=== PATIENT | female | born 2000 | race Caucasian/White ===

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

== ENCOUNTER 2023-10-11 09:54 | Outpatient (AMB) | payer BC, SELFPAY ==
--- NOTE | 2023-10-11 09:52 | MHC.OFFWIV ---
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 Intake Note: pt is here today for feeling sick hot and cold flashes started 1 weeks ago Patient Tobacco Use Status: Never used Tobacco Allergies No Known Allergies Allergy (Verified 10/11/23 09:59) Do you need a note to return to daycare/school/sports/work: Yes HPI HPI Comments History of Present Illness Details Patient is a 22yo F who presents to office with sick symptoms x 1 week She said subjective fever/chills + body aches and fatigue + ST, cough with some phlegm + congestion and headache No ear pain Denies sinus pressure She denies Mucinex without relief; valentina took once She denies sick contacts PFSH Social History Patient Tobacco Use Status: Never used Tobacco Review of Systems Const Reports body aches, Reports chills, Reports fatigue, Reports fever(s) and Reports headache(s) Eyes Denies blurry vision ENT Denies dizziness, Denies otalgia, Reports headache(s), Reports nasal congestion, Denies sinus pain and Reports sore throat Card Denies chest pain and Denies dyspnea Resp Reports change in phlegm color, Reports chest congestion, Reports cough and Denies dyspnea GI Denies abdominal pain Musc Reports myalgias Neuro Denies dizziness and Reports headache(s) Endo Reports fatigue Physical Exam Vital Signs: Last Vital Signs Temp 97.1 F 10/11/23 09:57 Pulse 104 H 10/11/23 09:57 BP 120/78 10/11/23 09:57 Pulse Ox 99 10/11/23 09:57 Oxygen Delivery Method Room Air 10/11/23 09:57 BMI result Body Mass Index 22.7 General: Non-toxic, NAD. Speaking full sentences. Skin: Warm dry throughout Eye: EOMI HENT: Airway patent. Uvula midline. Slight pharyngeal erythema without exudates or edema. 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 Bilateral canals clear. TM non-erythematous, non-bulging. No TM perforation or hemotympanum noted. Respiratory: Rhonchi R lung base. Otherwise L side CTA . No wheezes, rales Cardiac: RRR. No murmur MSK: Full ROM extremities. Neurology: A/O. No aphasia or facial droop. Gait without abnormality Psych: Good mood and affect Assessment & Plan Assessment & Plan (1) Bronchitis: Code(s): J40 - Bronchitis, not specified as acute or chronic Plan: Patient seen and evaluated. Rhochi R lung ongoing x 1 week; Azithromycin with food Denies chance of She asked about PCP and I [place] [facility] [place]; [place] Patient gave verbal understanding and had no additional questions or concerns at time of discharge All questions answered Medications: New azithromycin start on day 2 of therapy 250 mg PO DAILY 6 tabs 0RF 6 days Coding Level of Care Code New Pt Level 3 (06838) Diagnoses Bronchitis J40
[2023-10-11 09:57] VITALS: BP 120/78; PULSE 104; TEMP 36.2; O2SAT 99; BMI 22.7
== END 2023-10-11 10:25 | disposition home or self-care (01) ==
PROVIDERS: Visit Provider Physician Assistant
DX: J40 Bronchitis, not specified as acute or chronic (principal)
CPT/HCPCS: 99203